=== PATIENT | female | born 1980 | race African-American/Black ===

== ENCOUNTER 2017-12-23 21:34 | Emergency (ER) | payer BC ==
[2017-12-23] MEDS ORDERED: Albuterol/Ipratropium 3.0-0.5 MG/3 ML Neb Soln NEB ONE (21:54)
--- NOTE | 2017-12-23 21:57 | EDM.PDOC ---
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 Throat Pain Score (Numeric/FACES): 6 - Related Data Allergies Allergy/AdvReac Type Severity Reaction Status Date / Time No Known Allergies Allergy Verified 12/23/17 21:51 Home Meds: Home Meds Acetaminophen [Tylenol Extra Strength] 500 mg PO Q6H PRN 05/10/15 [History] levETIRAcetam [Levetiracetam] 750 mg PO BID 05/10/15 [History] 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: Neurological History: Reports: Seizure Endocrine/Metabolic History: Reports: Obesity/BMI 30+ - Past Surgical History GI Surgical History: Reports: Cholecystectomy Social & Family History - Family History Family Medical History: Noncontributory - Tobacco Use Smoking Status *Q: Never Smoker Second Hand Smoke Exposure: No - Caffeine Use Caffeine Use: Reports: Tea - Alcohol Use Days Per Week of Alcohol Use: 0 - Recreational Drug Use Recreational Drug Use: No - Living Situation & Occupation Living situation: Reports: , with Family Occupation: Employed ED ROS GENERAL - Review of Systems Review Of Systems: ROS reveals no pertinent complaints other than HPI. ED EXAM, GENERAL - Physical Exam Exam: See Below Exam Limited By: No Limitations General Appearance: Alert, WD/WN, Mild Distress, Other (cough spasm) Ears: Hearing Grossly Normal Throat/Mouth: Normal Voice, No Airway Compromise, Inflammation Head: Atraumatic Neck: Non-Tender, Full Range of Motion Respiratory/Chest: No Accessory Muscle Use, Rhonchi, Wheezing. No: Decreased Breath Sounds Cardiovascular: Regular Rate, Rhythm GI/Abdominal: Soft, Non-Tender Neurological: Alert, Oriented, Normal Cognition, Normal Gait, No Motor/Sensory Deficits Psychiatric: Normal Affect, Normal Mood Skin Exam: Warm, Dry, Normal Color Lymphatic: No Adenopathy Course - Vital Signs Last Recorded V/S: Last Vital Signs Temp 35.7 C 12/23/17 21:44 Pulse 107 H 12/23/17 21:44 Resp 19 12/23/17 21:44 BP 122/78 12/23/17 21:44 Pulse Ox 100 12/23/17 21:44 - Orders/Labs/Meds Orders: Active Orders 24 hr Category Date Time Status RT Aerosol Therapy [RC] ASDIRECTED Care 12/23/17 21:54 Active CULTURE STREP A CONFIRMATION [RM] Stat Lab 12/23/17 21:53 Results STREP SCRN A RAPID W CULT CONF [RM] Stat Lab 12/23/17 21:53 Results Meds: Medications Discontinued Medications Generic Name Dose Route Start Last Admin Trade Name Freq PRN Reason Stop Dose Admin Albuterol/Ipratropium 3 ml 12/23/17 21:54 12/23/17 21:57 Duoneb 3.0-0.5 Mg/3 Ml NEB 12/23/17 21:55 3 ml ONETIME ONE Administration - Re-Assessments/Exams Free Text/Narrative Re-Assessment/Exam: 12/23/17 22:28 s/p duoneb=much better Departure - Departure Time of Disposition: 22:29 Disposition: Home, Self-Care 01 Condition: Good Clinical Impression: Bronchospasm with bronchitis, acute - Discharge Information Instructions: Acute Bronchitis, Adult, [id number] Forms: ED Department Discharge Additional Instructions: 1) sleep as much as possible 2) drink lots of liquids 3) use neb 3 times daily for cough & wheeze 4) recheck as needed rx given; albuterol solution 2.5mg tid prn - My Orders Last 24 Hours: My Active Orders 12/23/17 21:53 CULTURE STREP A CONFIRMATION [RM] Stat STREP SCRN A RAPID W CULT CONF [RM] Stat 12/23/17 21:54 RT Aerosol Therapy [RC] ASDIRECTED - Assessment/Plan Last 24 Hours: My Active Orders 12/23/17 21:53 CULTURE STREP A CONFIRMATION [RM] Stat STREP SCRN A RAPID W CULT CONF [RM] Stat 12/23/17 21:54 RT Aerosol Therapy [RC] ASDIRECTED
[2017-12-23 22:34] VITALS: BP 122/86
== END 2017-12-23 22:37 | disposition home or self-care (01) ==
LOC: DL.ED 21:34
DX: J20.9 Acute bronchitis, unspecified (principal)
CPT/HCPCS: 71046; 87081; 87430; 94640; 99283

== ENCOUNTER 2017-12-24 17:54 | Emergency (ER) | payer BC ==
[2017-12-24 18:15] VITALS: BP 124/83
[2017-12-24 19:04] LABS: ANION GAP 10.5; CHLORIDE,CL 107 mmol/L (101-111); SODIUM,NA 137 mmol/L (135-145)
--- NOTE | 2017-12-24 19:35 | EDM.PDOC ---
ED HPI GENERAL MEDICAL PROBLEM - General Chief Complaint: Chest Pain Stated Complaint: [id number] CHEST PAIN,WAIST PAIN Time Seen by Provider: 12/24/17 19:35 Source of Information: Reports: Patient History Limitations: Reports: No Limitations - History of Present Illness INITIAL COMMENTS - FREE TEXT/NARRATIVE: c/o continued cough, chest pain with coughing around ribs, upper abdomen and back. Slight intermittent fever. Mid-Sternal Chest Pain Score (Numeric/FACES): 10 - Related Data Allergies Allergy/AdvReac Type Severity Reaction Status Date / Time No Known Allergies Allergy Verified 12/24/17 18:15 Home Meds: Home Meds Acetaminophen [Tylenol Extra Strength] 500 mg PO Q6H PRN 05/10/15 [History] levETIRAcetam [Levetiracetam] 750 mg PO BID 05/10/15 [History] Albuterol Sulfate 0.63 mg IH ASDIRECTED PRN 12/24/17 [History] Past Medical History HEENT History: Reports: None Cardiovascular History: Reports: None Respiratory History: Reports: None Gastrointestinal History: Reports: None Genitourinary History: Reports: None 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: 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 History: Reports: None Neurological History: Reports: Seizure Psychiatric History: Reports: None Endocrine/Metabolic History: Reports: Obesity/BMI 30+ Hematologic History: Reports: None Immunologic History: Reports: None Oncologic (Cancer) History: Reports: None Dermatologic History: Reports: None - Past Surgical History Head Surgeries/Procedures: Reports: None GI Surgical History: Reports: Cholecystectomy Social & Family History - Family History Family Medical History: Noncontributory - Tobacco Use Smoking Status *Q: Never Smoker Second Hand Smoke Exposure: No - Caffeine Use Caffeine Use: Reports: Tea - Alcohol Use Days Per Week of Alcohol Use: 0 - Recreational Drug Use Recreational Drug Use: No - Living Situation & Occupation Living situation: Reports: , with Family Occupation: Employed ED ROS GENERAL - Review of Systems Review Of Systems: See Below Constitutional: Reports: Chills Respiratory: Reports: Wheezing, Pleuritic Chest Pain, Cough Cardiovascular: Reports: Chest Pain (with coughing). Denies: Dyspnea on Exertion GI/Abdominal: Reports: No Symptoms Skin: Reports: No Symptoms Neurological: Reports: No Symptoms Psychiatric: Reports: No Symptoms ED EXAM, GENERAL - Physical Exam Exam: See Below Exam Limited By: No Limitations General Appearance: Alert, No Apparent Distress Eye Exam: Bilateral Eye: EOMI Ears: Normal External Exam, Normal TMs Throat/Mouth: Normal Inspection, Normal Lips, Other (lips cracked). No: Normal Voice (hoarse) Head: Atraumatic, Normocephalic Neck: Normal Inspection, Supple, Non-Tender. No: Lymphadenopathy (L), Lymphadenopathy (R) Respiratory/Chest: No Respiratory Distress, Lungs Clear, Decreased Breath Sounds Cardiovascular: Normal Peripheral Pulses, Regular Rate, Rhythm GI/Abdominal: Normal Bowel Sounds, Soft Back Exam: Full Range of Motion Extremities: Normal Inspection Neurological: Alert, Oriented, Normal Cognition Psychiatric: Normal Affect, Normal Mood Skin Exam: Warm, Dry, Intact, Normal Color Course - Vital Signs Last Recorded V/S: Last Vital Signs Temp 97.4 F 12/24/17 18:09 Pulse 97 12/24/17 18:09 Resp 16 12/24/17 18:09 BP 124/83 12/24/17 18:09 Pulse Ox 99 12/24/17 18:09 - Orders/Labs/Meds Orders: Active Orders 24 hr Category Date Time Status EKG Documentation Completion [RC] URGENT Care 12/24/17 18:30 Active Labs: Laboratory Tests 12/24/17 12/24/17 Range/Units 18:39 18:39 WBC 4.5 L (5.0-10.0) 10^3/uL RBC 4.31 (4.2-5.4) 10^6/uL Hgb 11.4 L D (12.0-16.0) g/dL Hct 34.8 L (37.0-47.0) % MCV 80.7 D (80-100) fL MCH 26.5 L (27.0-34.0) pg MCHC 32.8 L (33.0-35.0) g/dL Plt Count 233 D (150-450) 10^3/uL Neut % (Auto) 38.9 L (42.2-75.2) % Lymph % (Auto) 44.8 (20.5-50.1) % [place] % (Auto) 15.9 H (2-8) % Eos % (Auto) 0.2 L (1.0-3.0) % Baso % (Auto) 0.2 (0.0-1.0) % Sodium 137 (135-145) mmol/L Potassium 3.5 L (3.6-5.0) mmol/L Chloride 107 (101-111) mmol/L Carbon Dioxide 23.0 (21.0-31.0) mmol/L Anion Gap 10.5 BUN 5 L (7-18) mg/dL Creatinine 0.7 (0.6-1.3) mg/dL Est Cr Clr Drug Dosing 113.88 mL/min Estimated GFR (MDRD) > 60 BUN/Creatinine Ratio 7.14 Glucose 105 (74-105) mg/dL Calcium 8.0 L (8.4-10.2) mg/dl Total Bilirubin 0.6 (0.2-1.0) mg/dL AST 29 (10-42) IU/L ALT 20 (10-60) IU/L Alkaline Phosphatase 59 (42-121) IU/L Troponin I < 0.02 (0.00-0.02) ng/ml Total Protein 7.2 (6.7-8.2) g/dl Albumin 3.7 (3.2-5.5) g/dl Globulin 3.5 Albumin/Globulin Ratio 1.06 - Radiology Interpretation Free Text/Narrative:: CXR: normal Departure - Departure Time of Disposition: 19:43 Disposition: Home, Self-Care 01 Condition: Good Clinical Impression: Bronchitis URI (upper respiratory infection) Qualifiers: URI type: unspecified viral URI Qualified Code(s): J06.9 - Acute upper respiratory infection, unspecified - Discharge Information Instructions: Viral Respiratory Infection, [id number] Referrals: PCP,None [Ordering Only Provider] - Forms: ED Department Discharge Additional Instructions: humidification Robitussin per label for cough alternate tylenol and ibuprofen for fever/discomfort increase fluid intake
--- NOTE | 2017-12-26 06:20 | EKG ---
12/24/2017 - JASMYN ASHER - This 12-lead EKG shows normal sinus rhythm with a ventricular rate of 87. Normal axis and intervals. No acute ST-segment or T-wave changes. [facility] /[id number]
== END 2017-12-24 19:48 | disposition home or self-care (01) ==
LOC: DL.ED 17:54
DX: J40 Bronchitis, not specified as acute or chronic (principal); J06.9 Acute upper respiratory infection, unspecified; Z79.899 Other long term (current) drug therapy
CPT/HCPCS: 36415; 71045; 80053; 84484; 85025; 93005; 99285

== ENCOUNTER 2020-05-30 09:06 | Emergency (ER) | payer BC ==
[2020-05-30 09:23] VITALS: BP 110/75; PULSE 188
[2020-05-30] MEDS ORDERED: Sodium Chloride 0.9% 10 ML Syringe FLUSH PRN (09:52)
[2020-05-30 10:40] LABS: ANION GAP 19.4 mEq/L (7-13); CHLORIDE,CL 99 mmol/L (98-107); SODIUM,NA 138 mmol/L (136-145)
--- NOTE | 2020-05-30 10:52 | CR ---
PROCEDURE INFORMATION: Exam: XR Chest, 1 View Exam date and time: 05/30/2020 10:24 AM Age: 39 years old Clinical indication: Shortness of breath TECHNIQUE: Imaging protocol: XR of the chest Views: 1 view. COMPARISON: CR Chest 1V Frontal 12/24/2017 6:55 PM FINDINGS: Lungs: Lung volumes are decreased bilaterally. Bilateral transverse lung densities appear to be compatible with atelectasis, right greater than left. There are no additional coalescing infiltrates. Pleural space: No pleural effusion. No pneumothorax. Heart/Mediastinum: The mediastinal contour is normal. No cardiomegaly. Bones/joints: The skeletal structures and soft tissues show no evidence of fracture or other acute processes. IMPRESSION: 1. Decreased lung volumes with probable bibasilar atelectatic changes. Upright two view chest would be helpful for further characterization. If patient is unable to cooperate consider noncontrast CT chest.
[2020-05-30] MEDS ORDERED: fentaNYL 100 MCG/2 ML SDV IVPUSH ONE (11:08)
[2020-05-30] MEDS ORDERED: Iopamidol 755 Mg/ML 100 ML Bottle IVPUSH ONE (12:11)
--- NOTE | 2020-05-30 12:24 | CT ---
PROCEDURE INFORMATION: Exam: CT Chest With Contrast Exam date and time: 05/30/2020 11:29 AM Age: 39 years old Clinical indication: Shortness of breath; Additional info: Shortness of breath, recent tubal ligation TECHNIQUE: Imaging protocol: Computed tomography of the chest with intravenous contrast. Radiation optimization: All CT scans at this facility use at least one of these dose optimization techniques: automated exposure control; mA and/or kV adjustment per patient size (includes targeted exams where dose is matched to clinical indication); or iterative reconstruction. Contrast material: ISOVUE 370; Contrast volume: 80 ml; Contrast route: INTRAVENOUS (IV); COMPARISON: CR Chest 1V Frontal 05/30/2020 10:24 AM FINDINGS: Thoracic inlet: Normal. No thyroid masses. Lungs: There are decreased bilateral lung volumes. There are multifocal peripheral small opacities throughout the lungs right greater than left. Bilateral bibasilar atelectasis. Pleural space: No pneumothorax. No pleural effusion. Heart: The cardiac structures are normal. Mediastinal space: The mediastinal contour is normal. Pulmonary arteries: No filling defects within the main or bilateral pulmonary arteries. Poor opacification of right lower lobe subsegmental pulmonary branches. Aorta: The aorta has normal caliber and opacification without dissection or aneurysm. Lymph nodes: No enlarged lymph nodes. Bones/joints: The skeletal structures and soft tissues show no evidence of fracture or other acute processes. Soft tissues: Unremarkable. IMPRESSION: 1. Multiple small bilateral peripheral ground glass opacities or infiltrates. Differential diagnosis compatible with pneumonitis of the infectious and noninfectious variety. 2. Bilateral basilar discoid atelectasis, right greater than left. 3. No evidence of pulmonary embolic disease within the main, right and left pulmonary arteries. Subsegmental branches not well opacified. If PO2 decreases or patient does not respond to conservative therapy consider repeat CTA of the chest.
--- NOTE | 2020-05-30 14:15 | EDM.PDOC ---
Scribed by Katarina Dodd 05/30/20 1414 for Kristi Velez MD ED HPI GENERAL MEDICAL PROBLEM - General Chief Complaint: Respiratory Problem Stated Complaint: HURTS TO BREATH Time Seen by Provider: 05/30/20 09:50 Source of Information: Reports: Patient, RN, RN Notes Reviewed History Limitations: Reports: No Limitations - History of Present Illness INITIAL COMMENTS - FREE TEXT/NARRATIVE: Patient presents to ED stating her pain started on Sunday with cough. Her was tested positive for COVID. The pain started 2 days ago to right back and radiates to front. It is sharp up to 10/10 off /on. The cough is productive. 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 Right Thoracic Pain Score (Numeric/FACES): 10 - Related Data Allergies Allergy/AdvReac Type Severity Reaction Status Date / Time No Known Allergies Allergy Verified 05/30/20 09:32 Home Meds: Home Meds Acetaminophen [Tylenol Extra Strength] 500 mg PO Q6H PRN 05/10/15 [History] levETIRAcetam [Levetiracetam] 750 mg PO BID 05/10/15 [History] Albuterol Sulfate 0.63 mg IH ASDIRECTED PRN 12/24/17 [History] Past Medical History HEENT History: Reports: None Cardiovascular History: Reports: None Respiratory History: Reports: None Gastrointestinal History: Reports: None Genitourinary History: Reports: None 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 History: Reports: 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 Neurological History: Reports: Seizure Psychiatric History: Reports: None Endocrine/Metabolic History: Reports: Obesity/BMI 30+ Hematologic History: Reports: None Immunologic History: Reports: None Oncologic (Cancer) History: Reports: None Dermatologic History: Reports: None - Past Surgical History Head Surgeries/Procedures: Reports: None GI Surgical History: Reports: Cholecystectomy Social & Family History - Family History Family Medical History: Noncontributory - Tobacco Use Smoking Status *Q: Never Smoker Second Hand Smoke Exposure: No - Caffeine Use Caffeine Use: Reports: Tea - Recreational Drug Use Recreational Drug Use: No - Living Situation & Occupation Living situation: Reports: , with Family Occupation: Employed ED ROS GENERAL - Review of Systems Review Of Systems: Comprehensive ROS is negative, except as noted in HPI. ED EXAM, GENERAL - Physical Exam Exam: See Below Exam Limited By: No Limitations General Appearance: Mild Distress (2/2 pain. ) Nose: Normal Inspection Head: Atraumatic, Normocephalic Neck: Normal Inspection Respiratory/Chest: No Accessory Muscle Use, Decreased Breath Sounds, Other (mild respiratory distress. TTP right lower chest. ) Cardiovascular: No Murmur, Tachycardia GI/Abdominal: Normal Bowel Sounds, Soft, Non-Tender, No Organomegaly, No Distention, No Abnormal Bruit, No Mass (Female) Exam: Deferred Rectal (Female) Exam: Deferred Back Exam: Normal Inspection, Full Range of Motion, NT Extremities: Normal Inspection, Normal Range of Motion, Non-Tender, Normal Capillary Refill, No Pedal Edema Neurological: Alert, Oriented, CN II-XII Intact, Normal Cognition, Normal Gait, Normal Reflexes, No Motor/Sensory Deficits Psychiatric: Normal Affect, Normal Mood Skin Exam: Warm, Dry, Intact, Normal Color, No Rash Lymphatic: No Adenopathy Course - Vital Signs Last Recorded V/S: Last Vital Signs Temp 96.6 F L 05/30/20 09:19 Pulse 188 H 05/30/20 09:19 Resp 20 05/30/20 09:19 BP 110/75 05/30/20 09:19 Pulse Ox 95 05/30/20 09:19 - Orders/Labs/Meds Orders: Active Orders 24 hr Category Date Time Status CULTURE BLOOD [BC] Stat Lab 05/30/20 10:12 Received Blood Culture x2 Reflex Set [OM.PC] Stat Oth 05/30/20 09:52 Ordered Peripheral IV Insertion Adult [OM.PC] Stat Oth 05/30/20 09:52 Ordered Labs: Laboratory Tests 05/30/20 05/30/20 05/30/20 Range/Units 09:22 10:12 10:12 WBC 5.5 (5.0-10.0) 10^3/uL RBC 5.22 (4.2-5.4) 10^6/uL Hgb 13.5 D (12.0-16.0) g/dL Hct 40.9 (37.0-47.0) % MCV 78.4 L (80-100) fL MCH 25.9 L (27.0-34.0) pg MCHC 33.0 (33.0-35.0) g/dL Plt Count 219 (150-450) 10^3/uL Neut % (Auto) 58.5 (42.2-75.2) % Lymph % (Auto) 32.8 (20.5-50.1) % [place] % (Auto) 8.7 H (2-8) % Eos % (Auto) 0.0 L (1.0-3.0) % Baso % (Auto) 0.0 (0.0-1.0) % Sodium 138 (136-145) mmol/L Potassium 3.4 L (3.5-5.1) mmol/L Chloride 99 (98-107) mmol/L Carbon Dioxide 23 (21-32) mmol/L Anion Gap 19.4 H (7-13) mEq/L BUN 6 L (7-18) mg/dL Creatinine 1.13 H (0.55-1.02) mg/dL Est Cr Clr Drug Dosing 69.16 mL/min Estimated GFR (MDRD) > 60 BUN/Creatinine Ratio 5.3 (No establ ref range) Glucose 120 H (74-99) mg/dL Lactic Acid (0.4-2.0) mmol/L Calcium 8.1 L (8.5-10.1) mg/dL Total Bilirubin 0.4 (0.2-1.0) mg/dL AST 55 H (15-37) U/L ALT 72 H (14-59) U/L Alkaline Phosphatase 64 (46-116) U/L Total Protein 8.8 H (6.4-8.2) g/dL Albumin 3.9 (3.4-5.0) g/dL Globulin 4.9 Albumin/Globulin Ratio 0.8 Urine Color (YELLOW) Urine Appearance (CLEAR) Urine pH (5.0-9.0) Ur Specific [place] (1.005-1.030) Urine Protein (NEGATIVE) Urine Glucose (UA) (NEGATIVE) Urine Ketones (NEGATIVE) Urine Occult Blood (NEGATIVE) Urine Nitrite (NEGATIVE) Urine Bilirubin (NEGATIVE) Urine Urobilinogen (0.2-1.0) mg/dL Ur Leukocyte Esterase (NEGATIVE) U Hyaline Cast (Auto) Urine RBC /HPF Urine WBC (0-5/HPF) /HPF Ur Epithelial Cells (NOT SEEN) /HPF Amorphous Sediment (NOT SEEN) /HPF Urine Bacteria (0-FEW/HPF) /HPF Fine Granular Casts (NOT SEEN) /LPF Urine Mucus (NOT SEEN) /LPF COVID-19 (KARTHIK) Positive H (NEGATIVE) 05/30/20 05/30/20 Range/Units 10:12 10:41 WBC (5.0-10.0) 10^3/uL RBC (4.2-5.4) 10^6/uL Hgb (12.0-16.0) g/dL Hct (37.0-47.0) % MCV (80-100) fL MCH (27.0-34.0) pg MCHC (33.0-35.0) g/dL Plt Count (150-450) 10^3/uL Neut % (Auto) (42.2-75.2) % Lymph % (Auto) (20.5-50.1) % [place] % (Auto) (2-8) % Eos % (Auto) (1.0-3.0) % Baso % (Auto) (0.0-1.0) % Sodium (136-145) mmol/L Potassium (3.5-5.1) mmol/L Chloride (98-107) mmol/L Carbon Dioxide (21-32) mmol/L Anion Gap (7-13) mEq/L BUN (7-18) mg/dL Creatinine (0.55-1.02) mg/dL Est Cr Clr Drug Dosing mL/min Estimated GFR (MDRD) BUN/Creatinine Ratio (No establ ref range) Glucose (74-99) mg/dL Lactic Acid 1.0 (0.4-2.0) mmol/L Calcium (8.5-10.1) mg/dL Total Bilirubin (0.2-1.0) mg/dL AST (15-37) U/L ALT (14-59) U/L Alkaline Phosphatase (46-116) U/L Total Protein (6.4-8.2) g/dL Albumin (3.4-5.0) g/dL Globulin Albumin/Globulin Ratio Urine Color Dark yellow (YELLOW) Urine Appearance Cloudy (CLEAR) Urine pH 6.5 (5.0-9.0) Ur Specific [place] >= 1.030 (1.005-1.030) Urine Protein 100 H (NEGATIVE) Urine Glucose (UA) Negative (NEGATIVE) Urine Ketones >=160 H (NEGATIVE) Urine Occult Blood Negative (NEGATIVE) Urine Nitrite Negative (NEGATIVE) Urine Bilirubin Small H (NEGATIVE) Urine Urobilinogen 2.0 H (0.2-1.0) mg/dL Ur Leukocyte Esterase Negative (NEGATIVE) U Hyaline Cast (Auto) Few Urine RBC 0-5 /HPF Urine WBC 0-5 (0-5/HPF) /HPF Ur Epithelial Cells Moderate H (NOT SEEN) /HPF Amorphous Sediment Moderate H (NOT SEEN) /HPF Urine Bacteria Few (0-FEW/HPF) /HPF Fine Granular Casts Rare H (NOT SEEN) /LPF Urine Mucus Moderate H (NOT SEEN) /LPF COVID-19 (KARTHIK) (NEGATIVE) Meds: Medications Discontinued Medications Generic Name Dose Route Start Last Admin Trade Name Freq PRN Reason Stop Dose Admin Fentanyl 50 mcg 05/30/20 11:08 05/30/20 11:20 Sublimaze IVPUSH 05/30/20 11:09 50 mcg ONETIME ONE Administration Iopamidol 100 ml 05/30/20 12:11 05/30/20 12:28 Isovue-370 (76%) IVPUSH 05/30/20 12:12 80 ml ONETIME ONE Administration Sodium Chloride 10 ml 05/30/20 09:52 05/30/20 11:19 Saline Flush FLUSH 10 ml ASDIRECTED PRN Administration Keep Vein Open Departure - Departure Time of Disposition: 13:05 Disposition: Home, Self-Care 01 Condition: Fair Clinical Impression: COVID-19 Muscle strain of chest wall Qualifiers: Encounter type: initial encounter Qualified Code(s): S29.011A - Strain of muscle and tendon of front wall of thorax, initial encounter - Discharge Information *PRESCRIPTION DRUG MONITORING PROGRAM REVIEWED*: Not Applicable *COPY OF PRESCRIPTION DRUG MONITORING REPORT IN PATIENT CALOS: Not Applicable Instructions: Muscle Strain, [id number], Coronavirus Information 12/22/19, Prevent the Spread of COVID-19 if You Are Sick - CDC Forms: ED Department Discharge Additional Instructions: Take Ibuprofen and Tylenol as directed Quarantine at home for at least 14 days. Follow up with PCP as needed. Sepsis Event Note (ED) - Evaluation Sepsis Screening Result: Possible Sepsis Risk - Focused Exam Vital Signs: Vital Signs Temp Pulse Resp BP Pulse Ox 05/30/20 09:19 96.6 F L 188 H 20 110/75 95 - My Orders Last 24 Hours: My Active Orders 05/30/20 09:52 Blood Culture x2 Reflex Set [OM.PC] Stat Peripheral IV Insertion Adult [OM.PC] Stat 05/30/20 10:12 CULTURE BLOOD [BC] Stat - Assessment/Plan Last 24 Hours: My Active Orders 05/30/20 09:52 Blood Culture x2 Reflex Set [OM.PC] Stat Peripheral IV Insertion Adult [OM.PC] Stat 05/30/20 10:12 CULTURE BLOOD [BC] Stat I have read and agree with the documentation that has been completed regarding this visit. By signing this record, I attest that the documentation was completed in my physical presence and is an accurate record of the encounter.
== END 2020-05-30 13:06 | disposition home or self-care (01) ==
LOC: DL.ED 09:06
DX: U07.1 COVID-19 (principal); S29.011A Strain of muscle and tendon of front wall of thorax, initial encounter; R56.9 Unspecified convulsions; Z79.899 Other long term (current) drug therapy; E66.9 Obesity, unspecified; Z68.38 Body mass index [BMI] 38.0-38.9, adult; X50.9XXA Other and unspecified overexertion or strenuous movements or postures, initial encounter
CPT/HCPCS: 36415; 71045; 71260; 80053; 81001; 83605; 85025; 87040; 87635; 96374; 99283; 99284; J3010; Q9967; U0002

== ENCOUNTER 2021-04-28 14:03 | Emergency (ER) | payer OTHER, BC ==
[2021-04-28 14:23] VITALS: BP 126/80; PULSE 113
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
[2021-04-28 15:12] LABS: ANION GAP 18.4 mEq/L (7-13); CHLORIDE,CL 102 mmol/L (98-107); SODIUM,NA 137 mmol/L (136-145)
[2021-04-28] MEDS ORDERED: Sodium Chloride 0.9% 1,000 ML IV ONE (15:26)
[2021-04-28] MEDS ORDERED: Aspirin 81 MG Tab.Chew PO ONE (15:54)
== END 2021-04-28 16:17 ==
LOC: DL.ED 14:03
DX: R56.9 Unspecified convulsions (principal); R79.89 Other specified abnormal findings of blood chemistry; E66.9 Obesity, unspecified; Z68.41 Body mass index [BMI] 40.0-44.9, adult; Z79.899 Other long term (current) drug therapy; V49.9XXA Car occupant (driver) (passenger) injured in unspecified traffic accident, initial encounter; Y92.410 Unspecified street and highway as the place of occurrence of the external cause
CPT/HCPCS: 36415; 70450; 80053; 80307; 83605; 84484; 85025; 86140; 93005; 99285; A9270; J7030